=== PATIENT | female | born 1965 ===

== ENCOUNTER 2018-05-18 10:10 | Emergency (ER) | payer SELFPAY ==
[2018-05-18 10:17] VITALS: BMI 26.8
[2018-05-18 11:55] LABS: BASO % 0.3 % (0.0-2.0); EOS # 0.1 K/uL (0.0-0.7); EOS % 1.5 % (0.0-4.0); HEMOGLOBIN 13.6 g/dL (11.0-16.0); LYMPH # 1.3 K/uL (1.0-4.3); LYMPH % 25.4 % (20.0-40.0); MEAN CELL VOLUME 94.9 fL (81.0-99.0); MEAN CORPUSCULAR HEMOGLOBIN 32.5 pg (27.0-31.0); MEAN CORPUSCULAR HGB CONC 34.2 g/dL (33.0-37.0); MEAN PLATELET VOLUME 7.4 fL (7.2-11.7); MONO # 0.4 K/uL (0.0-0.8); MONO % 9.1 % (0.0-10.0); NEUT # 3.1 K/uL (1.8-7.0); NEUT % 63.7 % (50.0-75.0); RBC 4.17 Mil/uL (3.80-5.20); RED CELL DISTRIBUTION WIDTH 12.7 % (11.5-14.5); WHITE BLOOD COUNT 4.9 K/uL (4.8-10.8)
[2018-05-18 12:14] LABS: HCG,QUALITATIVE URINE NEGATIVE (NEGATIVE)
[2018-05-18 12:15] LABS: INR 1.1; PROTHROMBIN TIME 12.5 SECONDS (9.7-12.2)
[2018-05-18 12:22] LABS: SQUAMOUS EPITHIAL < 1 /hpf (0-5); URINE BACTERIA RARE (<OCC); URINE BILIRUBIN NEGATIVE (NEGATIVE); URINE BLOOD 3+ (NEGATIVE); URINE CLARITY Hazy (Clear); URINE COLOR Yellow (YELLOW); URINE GLUCOSE (UA) NORMAL (Normal); URINE LEUKOCYTE ESTERASE NEG Leu/uL (Negative); URINE PROTEIN 1+ mg/dL (NEGATIVE); URINE UROBILINOGEN NORMAL mg/dL (0.2-1.0)
--- NOTE | 2018-05-18 12:42 | C.PDOC ---
History Of Present Illness Patient presents to ED c/o vaginal bleeding since April 14, worse in the last 2 days - she states had heavy bleeding with large amount of clots last night. Patient was previously being seen by Dr. Pappas in the [facility], but current has no [facility] tester. She has been getting DepoProvera injections Q3 months, most recently in March. She denies nausea/vomiting/diarrhea, dysuria, fever. Time Seen by Provider: 05/18/18 10:46 Chief Complaint (Nursing): Female Genitourinary History Per: Patient History/Exam Limitations: no limitations Onset/Duration Of Symptoms: Persistent Current Symptoms Are (Timing): Worse (in the last 2 days) Severity: Moderate Abnormal Vaginal Bleeding: Yes Past Medical History Reviewed: Historical Data, Nursing Documentation, Vital Signs Vital Signs: Last Vital Signs Temp 98.2 F 05/18/18 13:46 Pulse 74 05/18/18 13:46 Resp 20 05/18/18 13:46 BP 109/70 05/18/18 13:46 Pulse Ox 98 05/22/18 09:03 - Medical History PMH: Arthritis Family History: States: No Known Family Hx - Social History Hx Tobacco Use: No Hx Alcohol Use: No Hx Substance Use: No Review Of Systems Constitutional: Negative for: Fever, Chills Cardiovascular: Negative for: Chest Pain Respiratory: Negative for: Cough, Shortness of Breath Gastrointestinal: Negative for: Nausea, Vomiting, Abdominal Pain, Diarrhea Genitourinary: Positive for: Vaginal Bleeding. Negative for: Dysuria, Vaginal Discharge Skin: Negative for: Rash Physical Exam - Physical Exam Appears: Well, Non-toxic, No Acute Distress Skin: Normal Color, Warm, Dry Oral Mucosa: Moist Cardiovascular: Rhythm Regular Respiratory: Normal Breath Sounds, No Rales, No Rhonchi, No Wheezing Gastrointestinal/Abdominal: Normal Exam, Bowel Sounds, Soft, No Tenderness Back: No CVA Tenderness Neurological/Psych: Oriented x3 ED Course And Treatment - Laboratory Results Result Diagrams: 05/18/18 11:59 05/18/18 11:59 O2 Sat by Pulse Oximetry: 98 (RA) Pulse Ox Interpretation: Normal - CT Scan/US transvaginal US Other Rad Studies (CT/US): Read By Radiologist, Radiology Report Reviewed CT/US Interpretation: Accession No. : [id number]. Patient Name / ID : JOVANNY MENJIVAR / [id number]. Exam Date : 05/18/2018 11:37:35 ( Approved ) . Study Comment : Sex / Age : F / 52Y. Creator : Cheyenne Alexandre MD. Dictator : Cheyenne Alexandre MD. Machine Milker : Compounder : Cheyenne Alexandre MD. Approver2 : Report Date : 05/18/2018 12:39:45. My Comment : . Date of service: 05/18/2018. HISTORY: PELVIC PAIN, BLEEDING. COMPARISON: Transvaginal ultrasound performed 06/15/17. TECHNIQUE: Real-time transabdominal pelvic ultrasound was performed. In addition a transvaginal pelvic ultrasound was necessary to better depict pelvic anatomy. FINDINGS: UTERUS: Measures 10.2 x 5.6 x 8.0 cm. Anteverted. At least 3 uterine fibroids are identified: 2.2 cm sub serosal fundal fibroid; 2.4 cm sub serosal posterior uterine fibroid; 2.0 cm submucosal lower uterine segment fibroid. ENDOMETRIUM: Measures 9 mm in diameter. CERVIX: Cervix length measures approximately 3.6 cm. RIGHT OVARY: Measures 2.8 x 2.1 x 3.2 cm. Blood flow is demonstrated. LEFT OVARY: Measures 2.8 x 1.5 x 2.4 cm. Blood flow is demonstrated. FREE FLUID: Small pelvic free fluid. OTHER FINDINGS: None. IMPRESSION: Probable fibroid uterus as above. Small pelvic free fluid. Progress Note: Blood work, UA, Upreg and transvaginal US ordered and reviewed. Patient given IV NS bolus. Reevaluation Time: 13:40 Reassessment Condition: Improved (Patient reassessed, is currently resting comfortably, in no pain. Patient instructed to follow up with [facility] at [place] within 1week. She understands she should return to ED if her symptoms worsen.) Disposition Counseled Patient/Family Regarding: Studies Performed, Diagnosis, Need For Followup - Disposition Referrals: [facility] [Outside] [facility] [Outside] Disposition: HOME/ ROUTINE Disposition Time: 13:40 Condition: STABLE Additional Instructions: FOLLOW UP IN [facility] IN 1-2 DAYS DRINK PLENTY OF FLUIDS RETURN TO EMERGENCY ROOM IF YOUR SYMPTOMS WORSEN SEGUIMIENTO EN [facility] EN 1-2 [facility] [place] RE[facility]ESE A LA JULIAN DE [facility] SI [facility] Instructions: Uterine Fibroids (DC) Forms: [employer] (Mongolian) Print Language: BRAZILIAN - Clinical Impression Clinical Impression: Uterine fibroid, Vaginal bleeding
[2018-05-18 12:58] LABS: ALB/GLOB RATIO 1.5 (1.0-2.1); ALBUMIN 4.1 g/dL (3.5-5.0); ALT/SGPT 17 U/L (9-52); AST/SGOT 23 U/L (14-36); BLOOD UREA NITROGEN 15 mg/dL (7-17); CALCIUM 9.9 mg/dl (8.6-10.4); GFR NON-AFRICAN AMERICAN > 60
[2018-05-18] MEDS ORDERED: Sodium Chloride 0.9% 500 ML IV ONE (13:02)
[2018-05-18 13:48] VITALS: BP 109/70; PULSE 74; RESP 20; TEMP 98.2
[2018-05-22 08:59] VITALS: O2SAT 98
== END 2018-05-18 13:46 | disposition home or self-care (01) ==
LOC: C.ER 10:10
DX: D25.9 Leiomyoma of uterus, unspecified (principal); N93.9 Abnormal uterine and vaginal bleeding, unspecified
CPT/HCPCS: 76830; 76856; 80053; 81001; 84703; 85025; 85610; 85730; 96360; 99284; J7040